=== PATIENT | male | born 1975 | race Caucasian/White ===

== ENCOUNTER 2017-02-19 09:36 | Emergency (ER) | payer OTHER ==
[~2017-02-19] VITALS: Ht 182.9 cm; Wt 105.0 kg
[~2017-02-19 09:36] MED LIST: MOBI15TA PO; ULTR50TA PO
[2017-02-19 09:40] VITALS: BP 120/63; PULSE 83; RESP 14; TEMP 98.9; O2SAT 95
--- NOTE | 2017-02-19 10:42 | PD ---
HPI Chief Complaint: GI Complaint Time Seen by Provider: 10:19 Travel History International Travel<30 days: No Contact w/Intl Traveler<30days: No Traveled to known affect area: No History of Present Illness HPI The patient is a 41-year-old male who presents emergency department for cough and cold symptoms that started on Wednesday. The patient complains of productive cough producing sputum, anterior chest wall pain, and posttussive emesis. He also complains of mild sore throat, headache, and congestion. The patient does have a history of previous pneumonia 4 with previous hospitalization when he was in the . The patient called the [place] [facility] and they referred him to the emergency department for further evaluation. He does complain of fevers at home as high as 102. He did receive an influenza vaccination this year. He denies any current abdominal pain, diarrhea, but does know some generalized malaise without a specific myalgias or arthralgias. Symptoms are moderate, exacerbated by underlying infection, and there are no current alleviating factors. PFSH Past Medical History Arthritis: Yes Heart Rhythm Problems: No Cardiac Catheterization: No Cardiovascular Problems: Yes High Cholesterol: Yes Congestive Heart Failure: No Diabetes: No Gastrointestinal Disorders: Yes (IBS) GERD: Yes Past Surgical History Cholecystectomy: Yes Coronary Artery Bypass Graft: No Oral Surgery: Yes (WISDOM TEETH REMOVED) Family History Family Myocardial Infarction: Yes (MOM/DAD) Social History Alcohol Use: Yes (OCC) Tobacco Use: No (cigs in teen years) Substance Use: No Allergies-Medications (Allergen,Severity, Reaction): Coded Allergies: No Known Allergies (Verified , 03/03/16) Reported Meds & Prescriptions Reported Meds & Active Scripts Active Reported Mobic (Meloxicam) 15 Mg Tab 15 Mg PO DAILY PRN Ultram (Tramadol HCl) 50 Mg Tab 100 Mg PO TID PRN Review of Systems Except as stated in HPI: all other systems reviewed are Neg General / Constitutional: No: Fever HENT: Positive: Sore Throat, Congestion Cardiovascular: Positive: Chest Pain or Discomfort (chest wall pain secondary to coughing) Respiratory: Positive: Cough, No: Shortness of Breath Gastrointestinal: Positive: Vomiting (posttussive emesis), No: Nausea, Abdominal Pain Genitourinary: No: Dysuria Musculoskeletal: No: Myalgias, Arthralgias Skin: No Rash Physical Exam Narrative GENERAL: Awake, alert, pleasant 41-year-old male who appears his stated age and is in no acute respiratory distress. SKIN: Focused skin assessment warm/dry. HEAD: Atraumatic. Normocephalic. EYES: Pupils equal and round. No scleral icterus. No injection or drainage. ENT: No nasal bleeding or discharge. Mild cobblestoning of posterior pharynx but no exudate. TMs are translucent, EACs are clear. NECK: Trachea midline. No JVD. CARDIOVASCULAR: Regular rate and rhythm. No murmur appreciated. RESPIRATORY: No accessory muscle use. Clear to auscultation. Breath sounds equal bilaterally. GASTROINTESTINAL: Abdomen soft, non-tender, nondistended. No rebound tenderness. MUSCULOSKELETAL: No obvious deformities. No clubbing. No cyanosis. No edema. NEUROLOGICAL: Awake and alert. No obvious cranial nerve deficits. Motor grossly within normal limits. Normal speech. PSYCHIATRIC: Appropriate mood and affect; insight and judgment normal. Data Data Last Documented VS Vital Signs Date Time Temp Pulse Resp B/P Pulse Ox O2 Delivery O2 Flow Rate FiO2 02/19/17 09:40 98.9 83 14 120/63 95 Orders Chest, Single Ap (02/19/17 ) Influenzae A/B Antigen (02/19/17 10:35) MDM Medical Decision Making Medical Screen Exam Complete: Yes Emergency Medical Condition: Yes Medical Record Reviewed: Yes Interpretation(s) Last Impressions Chest X-Ray 02/19/17 0000 Signed Impressions: Service Date/Time: Sunday, February 19, 2017 10:47 - CONCLUSION: No acute disease. Rd Mancilla MD FACR Date/Time Procedure Status Source Growth 02/19/17 10:00 Influenza Types A,B Antigen ([place]) - Final Complete Nasal Aspirate NEGATIVE FOR FLU A AND B ANTIGEN.... Differential Diagnosis Differential diagnosis includes influenza, URI, viral syndrome, bronchitis, pneumonia, pertussis. Narrative Course Influenza screen was sent to lab. Chest x-ray was obtained. Chest x-rays negative. Influenza screen is negative. Patient most likely has viral URI with secondary bronchitis, however, does have a history of recurrent pneumonia. Therefore, patient will be placed on prednisone, Zithromax, and albuterol inhaler. Diagnosis Primary Impression: Bronchitis Patient Instructions: General Instructions Additional Instructions: Medications as directed. Please provide the patient a copy of his x-ray results and influenza results at discharge. Follow-up with the [place] [facility]. Return if symptoms worsen or progress. Med/Other Pt SpecificInfo: Prescription(s) given Scripts Albuterol 18 GM Inh (Ventolin Hfa 18 GM Inh)90 Mcg/Act Aer2 Puff INH Q6H PRN ( SHORTNESS OF BREATH) #1 INHALER Ref 0 Prov:Julio C López MD 02/19/17 Prednisone (Deltasone)20 Mg Tab40 Mg PO DAILY 5 Days Ref 0 Prov:Julio C López MD 02/19/17 Azithromycin (Zithromax Z-[place])250 Mg [id number] Mg PO DIRECTED #1 DSPK Ref 0 500 MG (2 tabs) day 1, then 1 tab days 2-5. Prov:Julio C López MD 02/19/17 Disposition: 01 DISCHARGE HOME Condition: Stable Julio C López MD Feb 19, 2017 10:42
--- NOTE | 2017-02-19 11:35 | RADRPT ---
EXAM DATE/TIME: 02/19/2017 10:47 [facility] COMPARISON: CHEST SINGLE AP, June 13, 2015, 0:56. INDICATIONS : Chest pain and shortness of breath. MEDICAL HISTORY : None. SURGICAL HISTORY : None. ENCOUNTER: Initial ACUITY: 1 day PAIN SCORE: 4/10 LOCATION: Left upper chest FINDINGS: A single view of the chest demonstrates the lungs to be symmetrically aerated without evidence of mas s, infiltrate or effusion. The cardiomediastinal contours are unremarkable. Osseous structures are intact. CONCLUSION: No acute disease. Rd Mancilla MD FACR on February 19, 2017 at 11:33 Board Certified Radiologist. This report was verified electronically.
[2017-02-19] MEDS ORDERED: PRED-503 PO (11:56)
[2017-02-19] MEDS ORDERED: VENTAER INH (11:56)
[2017-02-19] MEDS ORDERED: ZITHTAB PO (11:56)
== END 2017-02-19 12:11 | disposition home or self-care (01) ==
LOC: NEPD 09:36
DX: J40 Bronchitis, not specified as acute or chronic (principal); R06.02 Shortness of breath; R07.9 Chest pain, unspecified; E78.00 Pure hypercholesterolemia, unspecified; K21.9 Gastro-esophageal reflux disease without esophagitis; K58.9 Irritable bowel syndrome, unspecified
CPT/HCPCS: 71010; 87804; 99284